=== PATIENT | male | born 1960 | race Caucasian/White ===

== ENCOUNTER 2016-08-23 15:24 | Emergency (ER) | payer MEDICARE, MEDICAID ==
[2016-08-23] MEDS ORDERED: Lidocaine 1% 30 ML SDV INJECT ONE (16:15)
[2016-08-23 18:35] VITALS: BP 90/61
--- NOTE | 2016-08-26 08:12 | ER ---
Date of Service: 08/23/2016 SUBJECTIVE: Liborio presents to the emergency room with complaints of facial lacerations and contusions status post fall. The staff states that he misstepped and fell forward onto his face. He does have a history of schizoaffective disorder and does suffer from frequent falls. Is unknown if he did have loss of consciousness following the event. The patient's only complaint was that of facial pain after the fall. PAST MEDICAL HISTORY: 1. Schizoaffective disorder. 2. History of pneumonia. 3. Generalized anxiety disorder. 4. Obsessive compulsive disorder. 5. Hyperlipidemia. 6. Dysphagia. 7. Antisocial personality disorder. 8. Frequent health care and aspiration associated pneumonia. MEDICATIONS: 1. Clozapine. 2. Coenzyme Q10. 3. Bactrim DS. 4. Simethicone. 5. Propranolol. 6. MiraLAX. 7. Multivitamin and minerals. 8. Remeron. 9. [place] citrate. 10.Glycopyrrolate. 11.Fenofibrate. 12.Lexapro. 13.Senna Plus. 14.Valium. 15.Klonopin. 16.Dulcolax. 17.Ascorbic acid. ALLERGIES: To penicillin. REVIEW OF SYSTEMS: Unobtainable as patient is unwilling to answer questions. PHYSICAL EXAMINATION: General: This is a 56-year-old male patient who is in no acute distress. Vital signs: Please see nurse's notes. Skin: Warm, pink, and dry. HEENT: Head is normocephalic. He does have numerous abrasions to his forehead, to his nose, and to his chin. He also does have a stellate laceration to the bridge of his nose and also a well approximated 1 cm laceration to his forehead and a 1 cm total stellate laceration to the bridge of his nose. No obvious gross bony deformity underlying either of the lacerations. He does have numerous abrasions noted to his forehead and face. Ears, evaluation of the patient's left tympanic membrane reveals a large amount of cerumen. No hemotympanum noted. Right ear is within normal limits. Mouth, oral mucosa is moist. No evidence of any malocclusion or oral trauma noted. Evaluation of the nasal mucosa does not reveal any acute trauma. Neck and spine: No midline C-spine, thoracic, or lumbar discomfort noted on palpation. No neck trauma noted. Chest: No chest wall trauma noted. Lungs: Clear to auscultation. Heart: Regular rate and rhythm. Abdomen: Soft, nontender. There is no hepatosplenomegaly noted. There is no mass noted. Neurologic: He is alert, oriented, and answers all questions appropriately. His speech is fluent. DIAGNOSTIC DATA: CT scan of the patient's brain and facial bones were obtained. There was no evidence of any obvious fracture to the nasal bones. No intracranial trauma noted. EMERGENCY ROOM COURSE: The lacerations on the patient's face were cleansed with chlorhexidine and normal saline. A total of 3 sutures was placed in the laceration to the bridge of his nose and a total of 3 sutures was placed in the laceration to his forehead utilizing 6-0 nylon suture material. 1% lidocaine was used to anesthetize the lacerations prior to suturing and sterile technique was used. ASSESSMENT: 1 cm to bridge of nose and 1 cm laceration to forehead status post fall. PLAN: The patient will be discharged. Return if there is any redness, swelling, or discharge. Also, sutures out in 10 days. This can be done at the [facility]. Also, return if he develops any increased confusion, decreased level of consciousness, or other worrisome signs or symptoms. All questions were answered. MWK: 08/23/2016 18:03:31 MODL: 08/23/2016 23:09:29 /[id number]
== END 2016-08-23 17:05 ==
LOC: VM.ED 15:24
DX: S01.21XA Laceration without foreign body of nose, initial encounter (principal); S01.81XA Laceration without foreign body of other part of head, initial encounter; F41.9 Anxiety disorder, unspecified; Z88.0 Allergy status to penicillin; Z87.01 Personal history of pneumonia (recurrent); W19.XXXA Unspecified fall, initial encounter
CPT/HCPCS: 12001; 12011; 70450; 70486; 99282-GF-25; 99284

== ENCOUNTER 2022-06-23 07:45 | Emergency (ER) | payer MEDICARE, MEDICAID ==
[2022-06-23 07:50] VITALS: BP 133/84; PULSE 101
[2022-06-23] MEDS: Lidocaine 1% 30 ML SDV INJECT ONE (09:00)
== END 2022-06-23 09:32 ==
LOC: VM.ED 07:45 → MERGE 07:45 → VM.ED 09:32
DX: S61.216A Laceration without foreign body of right little finger without damage to nail, initial encounter (principal); E03.9 Hypothyroidism, unspecified; Z88.0 Allergy status to penicillin; Z79.899 Other long term (current) drug therapy
CPT/HCPCS: 12001; 73130-RT; 99283; 99284-25; J3490

== ENCOUNTER 2022-09-15 02:52 | Inpatient (IN) | payer MEDICARE, MEDICAID ==
[2022-09-15 03:20] LABS: BASOPHILS ABSOLUTE AUTO 0.1 x10^3/uL (0.0-0.2); BASOPHILS PERCENT AUTO 0.3 % (0.2-1.2); EOSINOPHILS ABSOLUTE AUTO 0.5 x10^3/uL (0.0-0.5); EOSINOPHILS PERCENT AUTO 3.3 % (0.0-4.0); HEMATOCRIT 47.6 % (40.0-52.0); HEMOGLOBIN 15.7 g/dL (14.0-18.0); IMMATURE GRAN ABSOLUTE AUTO 0.04 x10^3/uL (0.00-0.07); LYMPHOCYTES ABSOLUTE AUTO 2.4 x10^3/uL (1.0-4.8); LYMPHOCYTES PERCENT AUTO 15.3 % (25.0-50.0); MEAN CORPUSCULAR HEMOGLOBIN 31.5 pg (26.0-32.0); MEAN CORPUSCULAR VOLUME 95.6 fL (78.0-93.0); MONOCYTES ABSOLUTE AUTO 0.6 x10^3/uL (0.0-0.8); NEUTROPHILS ABSOLUTE AUTO 12.2 x10^3/uL (1.8-7.7); NEUTROPHILS PERCENT AUTO 76.8 % (50.0-80.0); PLATELET COUNT,PLT 331 x10^3/uL (130-400); RED BLOOD CELL COUNT 4.98 x10^6/uL (4.5-6.0); WHITE BLOOD CELL COUNT,WBC 15.8 x10^3/uL (4.0-10.0)
[2022-09-15 03:38] LABS: A/G RATIO 0.83; ALANINE AMINOTRANSFERASE,ALT 21 U/L (16-63); ALBUMIN 3.4 g/dL (3.4-5.0); ALKALINE PHOSPHATASE 116 U/L (46-116); ASPARTATE AMNIOTRANSFERASE,AST 18 U/L (15-37); BILIRUBIN TOTAL 0.4 mg/dL (0.2-1.0); BLOOD UREA NITROGEN,BUN 15 mg/dL (7-18); C-REACTIVE PROTEIN 1.5 mg/dL (<=0.9); CALCIUM 9.5 mg/dL (8.5-10.1); CARBON DIOXIDE,CO2 26 mmol/L (21-32); CHLORIDE,CL 102 mmol/L (98-107); CREATININE 1.3 mg/dL (0.70-1.30); GLUCOSE RANDOM 164 mg/dL (70-99); POTASSIUM,K 4.6 mmol/L (3.5-5.1); PROTEIN TOTAL,TP 7.5 g/dL (6.4-8.2); SODIUM,NA 137 mmol/L (136-145)
[2022-09-15 03:39] LABS: ANION GAP 13.6 mmol/L (5-15); ESTIMATED GFR 62 mL/min (>=60)
[2022-09-15] MEDS ORDERED: Sodium Chloride 0.9% 1,000 ML IV ONE (03:49)
[2022-09-15] MEDS ORDERED: Iopamidol 612 MG/ML 100 ML Bottle IVPUSH ONE (03:51)
[2022-09-15] MEDS ORDERED: cefTRIAXone 2 GM Vial IVPUSH ONE (05:36)
[2022-09-15] MEDS: Sodium Chloride 0.9% 1,000 ML IV SCH ×2 (06:34→16:19)
[2022-09-15] MEDS ORDERED: Bisacodyl 5 MG Tab PO PRN (10:25)
[2022-09-15] MEDS ORDERED: Flumazenil 0.1 MG/ML 5 ML MDV IVPUSH PRN (10:40)
[2022-09-15] MEDS ORDERED: LORazepam 2 MG/ML SDV IVPUSH SCH (10:45)
[2022-09-15] MEDS ORDERED: LORazepam 1 MG Tab PO SCH (11:30)
[2022-09-15] MEDS ORDERED: Metoclopramide 10 MG Tab PO PRN (12:05)
[2022-09-15] MEDS: QUEtiapine 100 MG Tab PO SCH ×2 (12:16→20:13)
[2022-09-15] MEDS ORDERED: LEVOCARNITINE 500 MG PO SCH ×2 (13:00)
[2022-09-15] MEDS: Lactulose Soln 10 GM/15 ML 30 ML UD Cup PO SCH (20:13)
[2022-09-15] MEDS: Polyethylene Glycol 3350 Powder 17 GM Packet PO SCH (20:13)
[2022-09-15] MEDS: Propranolol 20 MG Tab PO SCH (20:13)
[2022-09-15] MEDS: Mirtazapine 30 MG Tab PO SCH (20:13)
[2022-09-15] MEDS: OLANZapine 10 MG Tab PO SCH (20:14)
[2022-09-15] MEDS: Diazepam 5 MG Tab PO SCH (20:14)
[2022-09-15] MEDS ORDERED: Non-Formulary Medication 1 Each (Lorazepam 2 MG Tablet) PO SCH (21:00)
[2022-09-15] MEDS ORDERED: Lactulose Soln 10 GM/15 ML 15 ML UD Cup PO SCH (21:00)
[2022-09-16] MEDS: Sodium Chloride 0.9% 1,000 ML IV SCH (00:15)
[2022-09-16] MEDS ORDERED: LORazepam 1 MG Tab PO SCH (06:00)
[2022-09-16] MEDS: Levothyroxine 50 MCG Tab PO SCH (06:08)
[2022-09-16 06:55] LABS: BASOPHILS PERCENT AUTO 0.3 % (0.2-1.2); EOSINOPHILS ABSOLUTE AUTO 0.5 x10^3/uL (0.0-0.5); EOSINOPHILS PERCENT AUTO 4.4 % (0.0-4.0); HEMATOCRIT 39.3 % (40.0-52.0); HEMOGLOBIN 12.9 g/dL (14.0-18.0); IMMATURE GRAN ABSOLUTE AUTO 0.01 x10^3/uL (0.00-0.07); LYMPHOCYTES ABSOLUTE AUTO 1.8 x10^3/uL (1.0-4.8); LYMPHOCYTES PERCENT AUTO 15.5 % (25.0-50.0); MEAN CORPUSCULAR HEMOGLOBIN 31.9 pg (26.0-32.0); MEAN CORPUSCULAR HGB CONC 32.8 g/dL (32.0-36.0); MONOCYTES ABSOLUTE AUTO 0.6 x10^3/uL (0.0-0.8); MONOCYTES PERCENT AUTO 5.2 % (2.0-11.0); NEUTROPHILS ABSOLUTE AUTO 8.4 x10^3/uL (1.8-7.7); NEUTROPHILS PERCENT AUTO 74.5 % (50.0-80.0); PLATELET COUNT,PLT 233 x10^3/uL (130-400); RED BLOOD CELL COUNT 4.05 x10^6/uL (4.5-6.0); WHITE BLOOD CELL COUNT,WBC 11.3 x10^3/uL (4.0-10.0)
[2022-09-16 07:25] LABS: CALCIUM 8.4 mg/dL (8.5-10.1); CREATININE 0.9 mg/dL (0.70-1.30); EST CRCL DRUG DOSING (CG) 81.28 mL/min; POTASSIUM,K 3.7 mmol/L (3.5-5.1); TSH ULTRASENSITIVE 1.89 uIU/mL (0.358-3.74)
[2022-09-16 07:30] LABS: ANION GAP 12.7 mmol/L (5-15)
[2022-09-16] MEDS ORDERED: Flumazenil 0.1 MG/ML 5 ML MDV IVPUSH PRN (08:38)
[2022-09-16] MEDS ORDERED: Mirtazapine 30 MG Tab PO SCH (09:00)
[2022-09-16] MEDS: Metoclopramide 10 MG/2 ML SDV IVPUSH SCH ×3 (09:02→21:38)
[2022-09-16] MEDS: LORazepam 2 MG/ML SDV IVPUSH SCH ×3 (09:03→21:37)
[2022-09-16] MEDS: cefTRIAXone 1 GM Vial IVPUSH SCH (09:08)
[2022-09-16] MEDS: Enoxaparin 40 MG/0.4 ML Syringe SUBCUT SCH (09:15)
[2022-09-16 10:01] LABS: APPEARANCE,URINE CLEAR (CLEAR); BILIRUBIN,URINE NEGATIVE (NEGATIVE); COLOR,URINE YELLOW (YELLOW); GLUCOSE,URINE NEGATIVE (NEGATIVE); KETONES,URINE 40 mg/dL (NEGATIVE); LEUKOCYTE ESTERASE,URINE NEGATIVE (NEGATIVE); NITRITE,URINE NEGATIVE (NEGATIVE); OCCULT BLOOD,URINE NEGATIVE (NEGATIVE); PROTEIN,URINE NEGATIVE (NEGATIVE); UROBILINOGEN,URINE 0.2 EU/dL (0.2)
[2022-09-16] MEDS: Magnesium Oxide 400 MG Tab PO SCH (10:37)
[2022-09-16] MEDS: QUEtiapine 100 MG Tab PO SCH ×3 (10:37→21:41)
[2022-09-16] MEDS: OLANZapine 10 MG Tab PO SCH ×2 (10:37→21:57)
[2022-09-16] MEDS: Lactulose Soln 10 GM/15 ML 30 ML UD Cup PO SCH ×2 (10:37→21:50)
[2022-09-16] MEDS: Propranolol 20 MG Tab PO SCH ×2 (10:37→21:57)
[2022-09-16] MEDS: Polyethylene Glycol 3350 Powder 17 GM Packet PO SCH ×2 (10:37→21:57)
[2022-09-16] MEDS: LORazepam 1 MG Tab PO SCH ×3 (13:17→18:30)
[2022-09-16] MEDS: Diazepam 5 MG Tab PO SCH (21:40)
[2022-09-16] MEDS: Mirtazapine 30 MG Tab PO SCH (21:57)
[2022-09-17] MEDS: Metoclopramide 10 MG/2 ML SDV IVPUSH SCH ×2 (03:26→08:20)
[2022-09-17] MEDS: LORazepam 1 MG Tab PO SCH ×2 (06:33→11:31)
[2022-09-17] MEDS: Levothyroxine 50 MCG Tab PO SCH (06:33)
[2022-09-17 06:51] LABS: BASOPHILS PERCENT AUTO 0.6 % (0.2-1.2); EOSINOPHILS ABSOLUTE AUTO 0.4 x10^3/uL (0.0-0.5); EOSINOPHILS PERCENT AUTO 5.8 % (0.0-4.0); HEMATOCRIT 36.2 % (40.0-52.0); IMMATURE GRAN ABSOLUTE AUTO 0.03 x10^3/uL (0.00-0.07); LYMPHOCYTES ABSOLUTE AUTO 1.6 x10^3/uL (1.0-4.8); LYMPHOCYTES PERCENT AUTO 22.7 % (25.0-50.0); MEAN CORPUSCULAR HEMOGLOBIN 31.9 pg (26.0-32.0); MEAN CORPUSCULAR HGB CONC 33.1 g/dL (32.0-36.0); MEAN CORPUSCULAR VOLUME 96.3 fL (78.0-93.0); MONOCYTES ABSOLUTE AUTO 0.5 x10^3/uL (0.0-0.8); MONOCYTES PERCENT AUTO 7.4 % (2.0-11.0); NEUTROPHILS ABSOLUTE AUTO 4.5 x10^3/uL (1.8-7.7); NEUTROPHILS PERCENT AUTO 63.1 % (50.0-80.0); PLATELET COUNT,PLT 211 x10^3/uL (130-400); RED BLOOD CELL COUNT 3.76 x10^6/uL (4.5-6.0); WHITE BLOOD CELL COUNT,WBC 7.1 x10^3/uL (4.0-10.0)
[2022-09-17 07:17] LABS: A/G RATIO 0.74; ALBUMIN 2.6 g/dL (3.4-5.0); BILIRUBIN TOTAL 0.3 mg/dL (0.2-1.0); CALCIUM 8.4 mg/dL (8.5-10.1); CREATININE 0.9 mg/dL (0.70-1.30); EST CRCL DRUG DOSING (CG) 81.28 mL/min; POTASSIUM,K 3.7 mmol/L (3.5-5.1); PROTEIN TOTAL,TP 6.1 g/dL (6.4-8.2)
[2022-09-17 07:18] LABS: ANION GAP 11.7 mmol/L (5-15)
[2022-09-17] MEDS: OLANZapine 10 MG Tab PO SCH (08:15)
[2022-09-17] MEDS: Propranolol 20 MG Tab PO SCH (08:15)
[2022-09-17] MEDS: QUEtiapine 100 MG Tab PO SCH ×2 (08:15→13:24)
[2022-09-17] MEDS: Magnesium Oxide 400 MG Tab PO SCH (08:16)
[2022-09-17] MEDS: LORazepam 2 MG/ML SDV IVPUSH SCH (08:17)
[2022-09-17] MEDS: cefTRIAXone 1 GM Vial IVPUSH SCH (08:29)
[2022-09-17] MEDS: Lactulose Soln 10 GM/15 ML 30 ML UD Cup PO SCH (08:32)
[2022-09-17] MEDS: Polyethylene Glycol 3350 Powder 17 GM Packet PO SCH (08:32)
[2022-09-17] MEDS: Enoxaparin 40 MG/0.4 ML Syringe SUBCUT SCH (08:33)
[2022-09-17] MEDS: LEVOCARNITINE PO SCH ×2 (08:34→13:25)
[2022-09-17 09:52] VITALS: BP 114/70
[2022-09-17 13:16] VITALS: PULSE 82
== END 2022-09-17 13:55 | DRG 389 ==
LOC: VM.ED 02:52 → UNDOADMIN 05:30 → VM.MS 05:30 → UNDODISIN 09-17 13:55
PROVIDERS: ADMIT Physician Assistant; ATTEND Internal Medicine
PROC: 0DH67UZ Insertion of Feeding Device into Stomach, Via Natural or Artificial Opening (ICD-10-PCS; principal; 2022-09-15)
DX: K56.609 Unspecified intestinal obstruction, unspecified as to partial versus complete obstruction (principal); F84.0 Autistic disorder; G40.909 Epilepsy, unspecified, not intractable, without status epilepticus; E03.9 Hypothyroidism, unspecified; K59.09 Other constipation; E78.5 Hyperlipidemia, unspecified; K76.89 Other specified diseases of liver; Z66 Do not resuscitate; E78.00 Pure hypercholesterolemia, unspecified; F25.0 Schizoaffective disorder, bipolar type; F71 Moderate intellectual disabilities; Z79.899 Other long term (current) drug therapy; R13.10 Dysphagia, unspecified; Z88.0 Allergy status to penicillin; Z79.890 Hormone replacement therapy; Z86.16 Personal history of COVID-19
CPT/HCPCS: 36415; 71045; 74018; 74177; 80048; 80053; 81003; 82140; 83605; 84145; 84443; 85025; 86140; 87040; 87077; 87186; 96361; 96374; 99284; 99285-25; A9270-GY; J0696; J1650; J2060; J2765; J7030; Q9967

== ENCOUNTER 2022-10-27 20:18 | Inpatient (IN) | payer MEDICARE, MEDICAID ==
[2022-10-27 20:37] LABS: BASOPHILS PERCENT AUTO 0.4 % (0.2-1.2); EOSINOPHILS ABSOLUTE AUTO 0.8 x10^3/uL (0.0-0.5); EOSINOPHILS PERCENT AUTO 7.2 % (0.0-4.0); HEMATOCRIT 49.7 % (40.0-52.0); HEMOGLOBIN 16.3 g/dL (14.0-18.0); IMMATURE GRAN ABSOLUTE AUTO 0.02 x10^3/uL (0.00-0.07); LYMPHOCYTES ABSOLUTE AUTO 3.3 x10^3/uL (1.0-4.8); LYMPHOCYTES PERCENT AUTO 29.3 % (25.0-50.0); MEAN CORPUSCULAR HEMOGLOBIN 32.1 pg (26.0-32.0); MEAN CORPUSCULAR HGB CONC 32.8 g/dL (32.0-36.0); MEAN CORPUSCULAR VOLUME 97.8 fL (78.0-93.0); MONOCYTES ABSOLUTE AUTO 0.5 x10^3/uL (0.0-0.8); MONOCYTES PERCENT AUTO 4.8 % (2.0-11.0); NEUTROPHILS ABSOLUTE AUTO 6.5 x10^3/uL (1.8-7.7); NEUTROPHILS PERCENT AUTO 58.1 % (50.0-80.0); PLATELET COUNT,PLT 300 x10^3/uL (130-400); RED BLOOD CELL COUNT 5.08 x10^6/uL (4.5-6.0); WHITE BLOOD CELL COUNT,WBC 11.2 x10^3/uL (4.0-10.0)
[2022-10-27 20:55] LABS: ALANINE AMINOTRANSFERASE,ALT 25 U/L (16-63); ALBUMIN 3.5 g/dL (3.4-5.0); ALKALINE PHOSPHATASE 126 U/L (46-116); ASPARTATE AMNIOTRANSFERASE,AST 19 U/L (15-37); BILIRUBIN TOTAL 0.4 mg/dL (0.2-1.0); BLOOD UREA NITROGEN,BUN 8 mg/dL (7-18); C-REACTIVE PROTEIN 1.2 mg/dL (<=0.9); CALCIUM 9.4 mg/dL (8.5-10.1); CARBON DIOXIDE,CO2 27 mmol/L (21-32); CHLORIDE,CL 105 mmol/L (98-107); CREATININE 1.3 mg/dL (0.70-1.30); GLUCOSE RANDOM 193 mg/dL (70-99); LIPASE 123 U/L (73-393); POTASSIUM,K 5.2 mmol/L (3.5-5.1); PROTEIN TOTAL,TP 7.9 g/dL (6.4-8.2); SODIUM,NA 143 mmol/L (136-145)
[2022-10-27 20:58] LABS: ANION GAP 16.2 mmol/L (5-15); ESTIMATED GFR 62 mL/min (>=60)
[2022-10-27] MEDS ORDERED: Iopamidol 612 MG/ML 100 ML Bottle IVPUSH ONE (21:18)
[2022-10-27] MEDS ORDERED: Naloxone 0.4 MG/ML SDV IVPUSH PRN (22:01)
[2022-10-27] MEDS ORDERED: HYDROmorphone 0.5 MG/0.5 ML Syringe IVPUSH ONE (22:01)
[2022-10-27] MEDS: Sodium Chloride 0.9% 1,000 ML IV SCH (22:15)
[2022-10-27] MEDS ORDERED: Ondansetron 4 MG/2 ML SDV IVPUSH PRN (22:41)
[2022-10-28] MEDS: Metoclopramide 10 MG/2 ML SDV IVPUSH SCH ×4 (00:45→16:46)
[2022-10-28] MEDS: Sodium Chloride 0.9% 1,000 ML IV SCH ×2 (04:37→21:37)
[2022-10-28] MEDS: Mirtazapine 30 MG Tab PO SCH ×2 (05:25→21:26)
[2022-10-28] MEDS: QUEtiapine 100 MG Tab PO SCH ×4 (05:26→21:26)
[2022-10-28 06:49] LABS: BASOPHILS PERCENT AUTO 0.4 % (0.2-1.2); EOSINOPHILS ABSOLUTE AUTO 0.8 x10^3/uL (0.0-0.5); EOSINOPHILS PERCENT AUTO 8.8 % (0.0-4.0); HEMOGLOBIN 13.1 g/dL (14.0-18.0); LYMPHOCYTES ABSOLUTE AUTO 2.5 x10^3/uL (1.0-4.8); LYMPHOCYTES PERCENT AUTO 26.4 % (25.0-50.0); MEAN CORPUSCULAR HEMOGLOBIN 32.3 pg (26.0-32.0); MEAN CORPUSCULAR HGB CONC 33.6 g/dL (32.0-36.0); MEAN CORPUSCULAR VOLUME 96.1 fL (78.0-93.0); MONOCYTES ABSOLUTE AUTO 0.6 x10^3/uL (0.0-0.8); MONOCYTES PERCENT AUTO 6.9 % (2.0-11.0); NEUTROPHILS ABSOLUTE AUTO 5.4 x10^3/uL (1.8-7.7); NEUTROPHILS PERCENT AUTO 57.5 % (50.0-80.0); PLATELET COUNT,PLT 236 x10^3/uL (130-400); RED BLOOD CELL COUNT 4.06 x10^6/uL (4.5-6.0); WHITE BLOOD CELL COUNT,WBC 9.3 x10^3/uL (4.0-10.0)
[2022-10-28 07:20] LABS: A/G RATIO 0.81; ALBUMIN 2.6 g/dL (3.4-5.0); BILIRUBIN TOTAL 0.4 mg/dL (0.2-1.0); EST CRCL DRUG DOSING (CG) 73.15 mL/min; POTASSIUM,K 4.2 mmol/L (3.5-5.1); PROTEIN TOTAL,TP 5.8 g/dL (6.4-8.2)
[2022-10-28 07:21] LABS: ANION GAP 11.2 mmol/L (5-15)
[2022-10-28] MEDS ORDERED: Lidocaine 2% HCl 11 ML Jelly Filled Syringe TOP PRN (08:44)
[2022-10-28] MEDS: LORazepam 1 MG Tab PO SCH ×4 (09:02→21:25)
[2022-10-28] MEDS: Polyethylene Glycol 3350 Powder 17 GM Packet PO SCH ×2 (09:02→21:26)
[2022-10-28] MEDS: Lactulose Soln 10 GM/15 ML 30 ML UD Cup PO SCH ×2 (09:02→21:25)
[2022-10-28] MEDS: Levothyroxine 50 MCG Tab PO SCH (09:04)
[2022-10-28] MEDS: Propranolol 20 MG Tab PO SCH ×2 (09:05→21:25)
[2022-10-28] MEDS: OLANZapine 10 MG Tab PO SCH ×2 (09:05→21:26)
[2022-10-28] MEDS: Enoxaparin 40 MG/0.4 ML Syringe SUBCUT SCH (13:21)
[2022-10-29] MEDS: Metoclopramide 10 MG/2 ML SDV IVPUSH SCH ×5 (00:08→23:31)
[2022-10-29] MEDS: Sodium Chloride 0.9% 1,000 ML IV SCH ×2 (05:53→20:20)
[2022-10-29] MEDS: LORazepam 1 MG Tab PO SCH ×4 (05:56→21:44)
[2022-10-29] MEDS: Levothyroxine 50 MCG Tab PO SCH (06:01)
[2022-10-29 06:55] LABS: HEMATOCRIT 37.7 % (40.0-52.0); HEMOGLOBIN 12.7 g/dL (14.0-18.0); MEAN CORPUSCULAR HEMOGLOBIN 32.2 pg (26.0-32.0); MEAN CORPUSCULAR HGB CONC 33.7 g/dL (32.0-36.0); MEAN CORPUSCULAR VOLUME 95.7 fL (78.0-93.0); RED BLOOD CELL COUNT 3.94 x10^6/uL (4.5-6.0); WHITE BLOOD CELL COUNT,WBC 9.5 x10^3/uL (4.0-10.0)
[2022-10-29 07:17] LABS: A/G RATIO 0.84; ALBUMIN 2.7 g/dL (3.4-5.0); BILIRUBIN TOTAL 0.6 mg/dL (0.2-1.0); CALCIUM 8.2 mg/dL (8.5-10.1); CREATININE 0.9 mg/dL (0.70-1.30); EST CRCL DRUG DOSING (CG) 81.28 mL/min; POTASSIUM,K 3.9 mmol/L (3.5-5.1); PROTEIN TOTAL,TP 5.9 g/dL (6.4-8.2)
[2022-10-29 07:18] LABS: ANION GAP 12.9 mmol/L (5-15)
[2022-10-29] MEDS: Polyethylene Glycol 3350 Powder 17 GM Packet PO SCH ×2 (08:45→21:43)
[2022-10-29] MEDS: QUEtiapine 100 MG Tab PO SCH ×3 (08:45→21:43)
[2022-10-29] MEDS: Propranolol 20 MG Tab PO SCH ×2 (08:45→21:44)
[2022-10-29] MEDS: Lactulose Soln 10 GM/15 ML 30 ML UD Cup PO SCH ×2 (08:46→21:44)
[2022-10-29] MEDS: Enoxaparin 40 MG/0.4 ML Syringe SUBCUT SCH (08:47)
[2022-10-29] MEDS: OLANZapine 10 MG Tab PO SCH ×2 (08:47→21:44)
[2022-10-29] MEDS: Mirtazapine 30 MG Tab PO SCH (21:44)
[2022-10-30] MEDS: Levothyroxine 50 MCG Tab PO SCH (06:43)
[2022-10-30] MEDS: LORazepam 1 MG Tab PO SCH ×2 (06:43→11:11)
[2022-10-30] MEDS: Metoclopramide 10 MG/2 ML SDV IVPUSH SCH ×2 (07:07→11:11)
[2022-10-30] MEDS: OLANZapine 10 MG Tab PO SCH (08:51)
[2022-10-30] MEDS: Polyethylene Glycol 3350 Powder 17 GM Packet PO SCH (08:53)
[2022-10-30] MEDS: Lactulose Soln 10 GM/15 ML 30 ML UD Cup PO SCH (08:53)
[2022-10-30] MEDS: Enoxaparin 40 MG/0.4 ML Syringe SUBCUT SCH (08:54)
[2022-10-30] MEDS: Propranolol 20 MG Tab PO SCH (08:55)
[2022-10-30] MEDS: QUEtiapine 100 MG Tab PO SCH ×2 (09:04→12:43)
[2022-10-30 11:22] VITALS: BP 135/75; PULSE 98
== END 2022-10-30 13:30 | DRG 389 ==
LOC: VM.ED 20:18 → VM.MS 22:11
PROVIDERS: ADMIT Nurse Practitioner Family; ATTEND Internal Medicine
PROC: 0D9670Z Drainage of Stomach with Drainage Device, Via Natural or Artificial Opening (ICD-10-PCS; principal; 2022-10-27)
DX: K56.609 Unspecified intestinal obstruction, unspecified as to partial versus complete obstruction (principal); F84.0 Autistic disorder; K59.09 Other constipation; E78.00 Pure hypercholesterolemia, unspecified; Z66 Do not resuscitate; F20.9 Schizophrenia, unspecified; D64.9 Anemia, unspecified; Z86.16 Personal history of COVID-19; E03.9 Hypothyroidism, unspecified; F41.1 Generalized anxiety disorder; F60.2 Antisocial personality disorder; F42.9 Obsessive-compulsive disorder, unspecified; F25.0 Schizoaffective disorder, bipolar type; K59.9 Functional intestinal disorder, unspecified; E78.5 Hyperlipidemia, unspecified; G40.909 Epilepsy, unspecified, not intractable, without status epilepticus; Z88.0 Allergy status to penicillin; Z79.899 Other long term (current) drug therapy
CPT/HCPCS: 36415; 43752; 71045; 74019; 74177; 80053; 83605; 83690; 84145; 85025; 85027; 86140; 96374; 99284; 99285-25; A9270-GY; J1170; J1650; J2765; J7030; Q9967

== ENCOUNTER 2022-11-02 20:22 | Inpatient (IN) | payer MEDICARE, MEDICAID ==
[2022-11-02] MEDS ORDERED: cefTRIAXone 1 GM Vial IVPUSH ONE (20:30)
[2022-11-02] MEDS ORDERED: Sodium Chloride 0.9% 1,000 ML IV ONE (20:30)
[2022-11-02 20:40] LABS: BASOPHILS ABSOLUTE AUTO 0.1 x10^3/uL (0.0-0.2); BASOPHILS PERCENT AUTO 0.3 % (0.2-1.2); EOSINOPHILS ABSOLUTE AUTO 0.5 x10^3/uL (0.0-0.5); EOSINOPHILS PERCENT AUTO 2.7 % (0.0-4.0); HEMATOCRIT 48.5 % (40.0-52.0); HEMOGLOBIN 15.6 g/dL (14.0-18.0); IMMATURE GRAN ABSOLUTE AUTO 0.03 x10^3/uL (0.00-0.07); LYMPHOCYTES ABSOLUTE AUTO 2.5 x10^3/uL (1.0-4.8); LYMPHOCYTES PERCENT AUTO 13.2 % (25.0-50.0); MEAN CORPUSCULAR HEMOGLOBIN 31.9 pg (26.0-32.0); MEAN CORPUSCULAR HGB CONC 32.2 g/dL (32.0-36.0); MEAN CORPUSCULAR VOLUME 99.2 fL (78.0-93.0); MONOCYTES ABSOLUTE AUTO 0.8 x10^3/uL (0.0-0.8); MONOCYTES PERCENT AUTO 4.3 % (2.0-11.0); NEUTROPHILS ABSOLUTE AUTO 14.7 x10^3/uL (1.8-7.7); NEUTROPHILS PERCENT AUTO 79.3 % (50.0-80.0); PLATELET COUNT,PLT 342 x10^3/uL (130-400); RED BLOOD CELL COUNT 4.89 x10^6/uL (4.5-6.0)
[2022-11-02 20:49] LABS: WHITE BLOOD CELL COUNT,WBC 18.6 x10^3/uL (4.0-10.0)
[2022-11-02 21:04] LABS: A/G RATIO 0.76; ALANINE AMINOTRANSFERASE,ALT 28 U/L (16-63); ALBUMIN 3.4 g/dL (3.4-5.0); ALKALINE PHOSPHATASE 124 U/L (46-116); ASPARTATE AMNIOTRANSFERASE,AST 16 U/L (15-37); BILIRUBIN TOTAL 0.3 mg/dL (0.2-1.0); BLOOD UREA NITROGEN,BUN 6 mg/dL (7-18); C-REACTIVE PROTEIN 2.42 mg/dL (<=0.30); CARBON DIOXIDE,CO2 27 mmol/L (21-32); CHLORIDE,CL 106 mmol/L (98-107); CREATININE 1.2 mg/dL (0.70-1.30); GLUCOSE RANDOM 154 mg/dL (70-99); POTASSIUM,K 4.4 mmol/L (3.5-5.1); PROTEIN TOTAL,TP 7.9 g/dL (6.4-8.2); SODIUM,NA 144 mmol/L (136-145)
[2022-11-02 21:06] LABS: ANION GAP 15.4 mmol/L (5-15); ESTIMATED GFR 68 mL/min (>=60)
[2022-11-02] MEDS ORDERED: Furosemide 20 MG/2 ML VIAL IV ONE (21:46)
[2022-11-02] MEDS ORDERED: Naloxone 0.4 MG/ML SDV IVPUSH PRN (21:54)
[2022-11-02] MEDS ORDERED: Morphine 4 MG/ML Syringe IVPUSH PRN (21:54)
[2022-11-02] MEDS ORDERED: LORazepam 2 MG/ML SDV IVPUSH PRN (22:06)
[2022-11-02] MEDS ORDERED: Flumazenil 0.1 MG/ML 5 ML MDV IVPUSH PRN (22:06)
[2022-11-02] MEDS: Albuterol/Ipratropium 3.0-0.5 MG/3 ML Neb Soln NEB SCH (22:22)
[2022-11-02] MEDS: Pantoprazole 40 MG Vial IVPUSH SCH (22:24)
[2022-11-02] MEDS: Sodium Chloride 0.9% 1,000 ML IV SCH (22:31)
[2022-11-02] MEDS ORDERED: Diazepam 5 MG Tab PO PRN (23:59)
[2022-11-02] MEDS ORDERED: Acetaminophen 325 MG Tab PO PRN (23:59)
[2022-11-03] MEDS: Albuterol/Ipratropium 3.0-0.5 MG/3 ML Neb Soln NEB SCH ×6 (02:49→22:56)
[2022-11-03] MEDS: LORazepam 1 MG Tab PO SCH ×4 (06:08→18:38)
[2022-11-03] MEDS: Sodium Chloride 0.9% 1,000 ML IV SCH ×3 (06:10→21:41)
[2022-11-03] MEDS: Levothyroxine 50 MCG Tab PO SCH (06:15)
[2022-11-03 08:20] LABS: BASOPHILS PERCENT AUTO 0.1 % (0.2-1.2); EOSINOPHILS ABSOLUTE AUTO 0.2 x10^3/uL (0.0-0.5); EOSINOPHILS PERCENT AUTO 0.9 % (0.0-4.0); HEMATOCRIT 41.9 % (40.0-52.0); HEMOGLOBIN 13.5 g/dL (14.0-18.0); IMMATURE GRAN ABSOLUTE AUTO 0.03 x10^3/uL (0.00-0.07); LYMPHOCYTES ABSOLUTE AUTO 2.1 x10^3/uL (1.0-4.8); LYMPHOCYTES PERCENT AUTO 11.9 % (25.0-50.0); MEAN CORPUSCULAR HGB CONC 32.2 g/dL (32.0-36.0); MEAN CORPUSCULAR VOLUME 99.3 fL (78.0-93.0); MONOCYTES ABSOLUTE AUTO 0.9 x10^3/uL (0.0-0.8); MONOCYTES PERCENT AUTO 5.1 % (2.0-11.0); NEUTROPHILS ABSOLUTE AUTO 14.2 x10^3/uL (1.8-7.7); NEUTROPHILS PERCENT AUTO 81.8 % (50.0-80.0); PLATELET COUNT,PLT 275 x10^3/uL (130-400); RED BLOOD CELL COUNT 4.22 x10^6/uL (4.5-6.0)
[2022-11-03 08:21] LABS: WHITE BLOOD CELL COUNT,WBC 17.4 x10^3/uL (4.0-10.0)
[2022-11-03 08:43] LABS: BLOOD UREA NITROGEN,BUN 11 mg/dL (7-18); C-REACTIVE PROTEIN 5.84 mg/dL (<=0.30); CALCIUM 8.2 mg/dL (8.5-10.1); CARBON DIOXIDE,CO2 27 mmol/L (21-32); CHLORIDE,CL 108 mmol/L (98-107); GLUCOSE RANDOM 133 mg/dL (70-99); MAGNESIUM 2.2 mg/dL (1.8-2.4); POTASSIUM,K 4.3 mmol/L (3.5-5.1); SODIUM,NA 144 mmol/L (136-145)
[2022-11-03 08:45] LABS: ANION GAP 13.3 mmol/L (5-15); ESTIMATED GFR 85 mL/min (>=60)
[2022-11-03] MEDS ORDERED: Enoxaparin 40 MG/0.4 ML Syringe SUBCUT SCH (09:00)
[2022-11-03] MEDS: OLANZapine 10 MG Tab PO SCH ×2 (09:55→20:55)
[2022-11-03] MEDS: Propranolol 20 MG Tab PO SCH ×2 (09:55→20:55)
[2022-11-03] MEDS: cefTRIAXone 1 GM Vial IVPUSH SCH (09:55)
[2022-11-03] MEDS: Pantoprazole 40 MG Vial IVPUSH SCH ×2 (09:56→21:03)
[2022-11-03] MEDS: QUEtiapine 100 MG Tab PO SCH ×3 (09:56→20:54)
[2022-11-03] MEDS: Polyethylene Glycol 3350 Powder 17 GM Packet NGTUBE SCH (20:54)
[2022-11-03] MEDS: Mirtazapine 30 MG Tab PO SCH (20:55)
[2022-11-04] MEDS: Albuterol/Ipratropium 3.0-0.5 MG/3 ML Neb Soln NEB SCH ×6 (02:04→23:49)
[2022-11-04] MEDS: LORazepam 1 MG Tab PO SCH ×4 (05:28→18:50)
[2022-11-04] MEDS: Sodium Chloride 0.9% 1,000 ML IV SCH ×2 (05:29→13:33)
[2022-11-04] MEDS: Levothyroxine 50 MCG Tab PO SCH (06:40)
[2022-11-04 06:57] LABS: BLOOD UREA NITROGEN,BUN 8 mg/dL (7-18); CALCIUM 7.8 mg/dL (8.5-10.1); CARBON DIOXIDE,CO2 25 mmol/L (21-32); CHLORIDE,CL 109 mmol/L (98-107); CREATININE 0.8 mg/dL (0.70-1.30); GLUCOSE RANDOM 95 mg/dL (70-99); POTASSIUM,K 3.8 mmol/L (3.5-5.1); SODIUM,NA 142 mmol/L (136-145)
[2022-11-04 07:02] LABS: ANION GAP 11.8 mmol/L (5-15); ESTIMATED GFR 99 mL/min (>=60)
[2022-11-04 07:25] LABS: BASOPHILS ABSOLUTE AUTO 0.1 x10^3/uL (0.0-0.2); BASOPHILS PERCENT AUTO 0.5 % (0.2-1.2); EOSINOPHILS ABSOLUTE AUTO 0.7 x10^3/uL (0.0-0.5); HEMATOCRIT 35.3 % (40.0-52.0); HEMOGLOBIN 11.4 g/dL (14.0-18.0); IMMATURE GRAN ABSOLUTE AUTO 0.01 x10^3/uL (0.00-0.07); LYMPHOCYTES ABSOLUTE AUTO 1.4 x10^3/uL (1.0-4.8); LYMPHOCYTES PERCENT AUTO 13.5 % (25.0-50.0); MEAN CORPUSCULAR HEMOGLOBIN 31.9 pg (26.0-32.0); MEAN CORPUSCULAR HGB CONC 32.3 g/dL (32.0-36.0); MEAN CORPUSCULAR VOLUME 98.9 fL (78.0-93.0); MONOCYTES ABSOLUTE AUTO 0.5 x10^3/uL (0.0-0.8); MONOCYTES PERCENT AUTO 4.9 % (2.0-11.0); NEUTROPHILS ABSOLUTE AUTO 7.5 x10^3/uL (1.8-7.7); PLATELET COUNT,PLT 233 x10^3/uL (130-400); RED BLOOD CELL COUNT 3.57 x10^6/uL (4.5-6.0); WHITE BLOOD CELL COUNT,WBC 10.1 x10^3/uL (4.0-10.0)
[2022-11-04] MEDS: cefTRIAXone 1 GM Vial IVPUSH SCH (10:36)
[2022-11-04] MEDS: Pantoprazole 40 MG Vial IVPUSH SCH ×2 (10:36→21:01)
[2022-11-04] MEDS: Propranolol 20 MG Tab PO SCH ×2 (10:59→20:19)
[2022-11-04] MEDS: OLANZapine 10 MG Tab PO SCH ×2 (10:59→20:20)
[2022-11-04] MEDS: QUEtiapine 100 MG Tab PO SCH ×3 (10:59→20:20)
[2022-11-04] MEDS: Polyethylene Glycol 3350 Powder 17 GM Packet NGTUBE SCH ×2 (11:06→20:26)
[2022-11-04] MEDS: Metoclopramide 10 MG/2 ML SDV IVPUSH SCH ×2 (14:46→18:50)
[2022-11-04] MEDS: Mirtazapine 30 MG Tab PO SCH (20:20)
[2022-11-05] MEDS: Metoclopramide 10 MG/2 ML SDV IVPUSH SCH ×4 (01:13→18:10)
[2022-11-05] MEDS: Albuterol/Ipratropium 3.0-0.5 MG/3 ML Neb Soln NEB SCH ×6 (03:04→22:41)
[2022-11-05] MEDS: Levothyroxine 50 MCG Tab PO SCH (06:01)
[2022-11-05] MEDS: LORazepam 1 MG Tab PO SCH ×4 (06:02→18:10)
[2022-11-05 07:12] LABS: BASOPHILS PERCENT AUTO 0.4 % (0.2-1.2); EOSINOPHILS ABSOLUTE AUTO 0.5 x10^3/uL (0.0-0.5); EOSINOPHILS PERCENT AUTO 7.1 % (0.0-4.0); HEMATOCRIT 34.9 % (40.0-52.0); HEMOGLOBIN 11.3 g/dL (14.0-18.0); IMMATURE GRAN ABSOLUTE AUTO 0.01 x10^3/uL (0.00-0.07); LYMPHOCYTES ABSOLUTE AUTO 1.4 x10^3/uL (1.0-4.8); LYMPHOCYTES PERCENT AUTO 20.9 % (25.0-50.0); MEAN CORPUSCULAR HEMOGLOBIN 32.1 pg (26.0-32.0); MEAN CORPUSCULAR HGB CONC 32.4 g/dL (32.0-36.0); MEAN CORPUSCULAR VOLUME 99.1 fL (78.0-93.0); MONOCYTES ABSOLUTE AUTO 0.5 x10^3/uL (0.0-0.8); MONOCYTES PERCENT AUTO 6.8 % (2.0-11.0); NEUTROPHILS ABSOLUTE AUTO 4.4 x10^3/uL (1.8-7.7); NEUTROPHILS PERCENT AUTO 64.7 % (50.0-80.0); PLATELET COUNT,PLT 209 x10^3/uL (130-400); RED BLOOD CELL COUNT 3.52 x10^6/uL (4.5-6.0); WHITE BLOOD CELL COUNT,WBC 6.8 x10^3/uL (4.0-10.0)
[2022-11-05 07:39] LABS: A/G RATIO 0.72; ALBUMIN 2.3 g/dL (3.4-5.0); BILIRUBIN TOTAL 0.3 mg/dL (0.2-1.0); CALCIUM 7.9 mg/dL (8.5-10.1); CREATININE 0.8 mg/dL (0.70-1.30); EST CRCL DRUG DOSING (CG) 91.44 mL/min; POTASSIUM,K 3.7 mmol/L (3.5-5.1); PROTEIN TOTAL,TP 5.5 g/dL (6.4-8.2)
[2022-11-05 07:50] LABS: ANION GAP 12.7 mmol/L (5-15)
[2022-11-05] MEDS: QUEtiapine 100 MG Tab PO SCH ×3 (10:13→20:59)
[2022-11-05] MEDS: cefTRIAXone 1 GM Vial IVPUSH SCH (10:13)
[2022-11-05] MEDS: OLANZapine 10 MG Tab PO SCH ×2 (10:13→21:00)
[2022-11-05] MEDS: Polyethylene Glycol 3350 Powder 17 GM Packet NGTUBE SCH ×2 (10:13→20:59)
[2022-11-05] MEDS: Propranolol 20 MG Tab PO SCH ×2 (10:13→20:59)
[2022-11-05] MEDS: Pantoprazole 40 MG Vial IVPUSH SCH ×2 (10:43→22:41)
[2022-11-05] MEDS: Mirtazapine 30 MG Tab PO SCH (20:59)
[2022-11-05] MEDS: Cefuroxime 250 MG Tab PO SCH (21:00)
[2022-11-06] MEDS: Metoclopramide 10 MG/2 ML SDV IVPUSH SCH ×3 (00:19→13:36)
[2022-11-06] MEDS: Albuterol/Ipratropium 3.0-0.5 MG/3 ML Neb Soln NEB SCH ×3 (05:38→10:16)
[2022-11-06] MEDS: LORazepam 1 MG Tab PO SCH ×2 (07:00→10:12)
[2022-11-06] MEDS: Levothyroxine 50 MCG Tab PO SCH (07:01)
[2022-11-06] MEDS: Cefuroxime 250 MG Tab PO SCH (10:11)
[2022-11-06] MEDS: Propranolol 20 MG Tab PO SCH (10:13)
[2022-11-06] MEDS: Pantoprazole 40 MG Vial IVPUSH SCH (10:13)
[2022-11-06] MEDS: QUEtiapine 100 MG Tab PO SCH ×2 (10:14→13:35)
[2022-11-06] MEDS: OLANZapine 10 MG Tab PO SCH (10:15)
[2022-11-06] MEDS: Polyethylene Glycol 3350 Powder 17 GM Packet NGTUBE SCH (10:16)
[2022-11-06 13:30] VITALS: BP 128/78; PULSE 89
== END 2022-11-06 14:08 | DRG 388 ==
LOC: VM.ED 20:22 → VM.MS 21:29
PROVIDERS: ADMIT Family Medicine; ATTEND Internal Medicine
PROC: 0DH67UZ Insertion of Feeding Device into Stomach, Via Natural or Artificial Opening (ICD-10-PCS; principal; 2022-11-03)
DX: K56.7 Ileus, unspecified (principal); J69.0 Pneumonitis due to inhalation of food and vomit; E44.1 Mild protein-calorie malnutrition; Z91.199 Patient's noncompliance with other medical treatment and regimen due to unspecified reason; K92.0 Hematemesis; F20.5 Residual schizophrenia; F84.0 Autistic disorder; Z68.27 Body mass index [BMI] 27.0-27.9, adult; F25.9 Schizoaffective disorder, unspecified; E03.9 Hypothyroidism, unspecified; F71 Moderate intellectual disabilities; F29 Unspecified psychosis not due to a substance or known physiological condition; D64.9 Anemia, unspecified; R13.12 Dysphagia, oropharyngeal phase; Z66 Do not resuscitate; F60.2 Antisocial personality disorder; E78.5 Hyperlipidemia, unspecified; F41.1 Generalized anxiety disorder; K59.09 Other constipation; F42.9 Obsessive-compulsive disorder, unspecified; F31.9 Bipolar disorder, unspecified; G40.909 Epilepsy, unspecified, not intractable, without status epilepticus; Z88.0 Allergy status to penicillin; E78.00 Pure hypercholesterolemia, unspecified; Z86.16 Personal history of COVID-19; R41.0 Disorientation, unspecified; Z98.890 Other specified postprocedural states; F20.9 Schizophrenia, unspecified; F48.2 Pseudobulbar affect; Z79.899 Other long term (current) drug therapy
CPT/HCPCS: 36415; 43752; 71045; 74018; 74019; 80048; 80053; 83605; 83735; 84145; 85025; 86140; 92610-GN; 94640; 94760; 96361; 96374; 99284; 99285-25; A9270-GY; C9113; J0696; J1940; J2060; J2765; J7030; J7620-GY

== ENCOUNTER 2023-07-01 17:41 | Emergency (ER) | payer MEDICARE, MEDICAID ==
[2023-07-01 17:52] VITALS: BP 130/89; PULSE 91
== END 2023-07-01 19:35 ==
LOC: VM.ED 17:41
DX: Z04.89 Encounter for examination and observation for other specified reasons (principal); E03.9 Hypothyroidism, unspecified; Z86.16 Personal history of COVID-19; Z88.0 Allergy status to penicillin; Z79.899 Other long term (current) drug therapy; W01.0XXA Fall on same level from slipping, tripping and stumbling without subsequent striking against object, initial encounter
CPT/HCPCS: 71045; 72100; 72170; 99283; 99285

== ENCOUNTER 2023-11-21 01:25 | Emergency (ER) | payer MEDICARE, MEDICAID ==
[2023-11-21] MEDS ORDERED: Sodium Chloride 0.9% 10 ML Syringe FLUSH PRN (01:31)
[2023-11-21 01:39] VITALS: PULSE 109
[2023-11-21 01:44] LABS: BASOPHILS PERCENT AUTO 0.1 % (0.2-1.2); EOSINOPHILS ABSOLUTE AUTO 0.1 x10^3/uL (0.0-0.5); EOSINOPHILS PERCENT AUTO 0.5 % (0.0-4.0); HEMATOCRIT 42.6 % (40.0-52.0); HEMOGLOBIN 14.8 g/dL (14.0-18.0); IMMATURE GRAN ABSOLUTE AUTO 0.02 x10^3/uL (0.00-0.07); LYMPHOCYTES ABSOLUTE AUTO 1.1 x10^3/uL (1.0-4.8); LYMPHOCYTES PERCENT AUTO 7.7 % (25.0-50.0); MEAN CORPUSCULAR HEMOGLOBIN 33.4 pg (26.0-32.0); MEAN CORPUSCULAR HGB CONC 34.7 g/dL (32.0-36.0); MEAN CORPUSCULAR VOLUME 96.2 fL (78.0-93.0); MONOCYTES PERCENT AUTO 6.9 % (2.0-11.0); NEUTROPHILS ABSOLUTE AUTO 12.2 x10^3/uL (1.8-7.7); NEUTROPHILS PERCENT AUTO 84.7 % (50.0-80.0); PLATELET COUNT,PLT 203 x10^3/uL (130-400); RED BLOOD CELL COUNT 4.43 x10^6/uL (4.5-6.0); WHITE BLOOD CELL COUNT,WBC 14.5 x10^3/uL (4.0-10.0)
[2023-11-21] MEDS: Acetaminophen 500 MG Tab PO ONE (01:47)
[2023-11-21] MEDS: LORazepam 1 MG Tab PO ONE (01:48)
[2023-11-21] MEDS: Piperacillin/Tazobactam 4.5 GM in Sodium Chloride 0.9% 100 ML IV ONE (01:53)
[2023-11-21 02:03] LABS: PROTHROMBIN TIME 9.9 SEC (8.9-11.5)
[2023-11-21 02:11] LABS: LACTIC ACID 1.4 mmol/L (0.4-2.0)
[2023-11-21 02:14] LABS: A/G RATIO 0.92; ALANINE AMINOTRANSFERASE,ALT 29 U/L (16-63); ALBUMIN 3.4 g/dL (3.4-5.0); ALKALINE PHOSPHATASE 106 U/L (46-116); ASPARTATE AMNIOTRANSFERASE,AST 18 U/L (15-37); BILIRUBIN TOTAL 0.8 mg/dL (0.2-1.0); BLOOD UREA NITROGEN,BUN 13 mg/dL (7-18); C-REACTIVE PROTEIN 4.66 mg/dL (<=0.50); CALCIUM 9.1 mg/dL (8.5-10.1); CARBON DIOXIDE,CO2 29 mmol/L (21-32); CHLORIDE,CL 102 mmol/L (98-107); CREATININE 1.2 mg/dL (0.70-1.30); GLUCOSE RANDOM 144 mg/dL (70-99); MAGNESIUM 2.1 mg/dL (1.8-2.4); POTASSIUM,K 4.5 mmol/L (3.5-5.1); PROTEIN TOTAL,TP 7.1 g/dL (6.4-8.2); SODIUM,NA 138 mmol/L (136-145); TSH ULTRASENSITIVE 1.924 uIU/mL (0.358-3.74)
[2023-11-21 02:15] LABS: ANION GAP 11.5 mmol/L (5-15); ESTIMATED GFR 68 mL/min (>=60)
[2023-11-21] MEDS: LORazepam 2 MG/ML SDV IVPUSH ONE (02:26)
[2023-11-21 02:32] VITALS: BP 130/88
[2023-11-21 02:41] LABS: CORONAVIRUS COVID-19 NAA NEGATIVE (NEGATIVE); INFLUENZA A NAA NEGATIVE (NEGATIVE); INFLUENZA B NAA NEGATIVE (NEGATIVE); RESPIRATORY SYNCYTIAL VIR NAA NEGATIVE (NEGATIVE)
[2023-11-21] MEDS: Doxycycline Monohydrate 100 MG Cap PO ONE (03:05)
== END 2023-11-21 04:14 ==
LOC: VM.ED 01:25
DX: J69.0 Pneumonitis due to inhalation of food and vomit (principal); E03.9 Hypothyroidism, unspecified; Z86.16 Personal history of COVID-19; Z79.899 Other long term (current) drug therapy; Z88.0 Allergy status to penicillin
CPT/HCPCS: 0241U; 36415; 71045; 80053; 83605; 83735; 84443; 84484; 85025; 85610; 85730; 86140; 87040; 96365; 96375; 99285-25; A9270-GY; J2060; J2543; J3490

== ENCOUNTER 2023-11-21 10:28 | Inpatient (IN) | payer MEDICARE, MEDICAID ==
[2023-11-21] MEDS ORDERED: Albuterol/Ipratropium 3.0-0.5 MG/3 ML Neb Soln NEB PRN (11:55)
[2023-11-21] MEDS ORDERED: Sodium Chloride 0.9% 10 ML Syringe FLUSH PRN (11:55)
[2023-11-21] MEDS ORDERED: Ondansetron 4 MG/2 ML SDV IV PRN (11:55)
[2023-11-21 12:23] LABS: BASOPHILS PERCENT AUTO 0.1 % (0.2-1.2); EOSINOPHILS PERCENT AUTO 0.2 % (0.0-4.0); HEMATOCRIT 40.3 % (40.0-52.0); HEMOGLOBIN 13.4 g/dL (14.0-18.0); IMMATURE GRAN ABSOLUTE AUTO 0.05 x10^3/uL (0.00-0.07); LYMPHOCYTES ABSOLUTE AUTO 1.4 x10^3/uL (1.0-4.8); MEAN CORPUSCULAR HEMOGLOBIN 32.8 pg (26.0-32.0); MEAN CORPUSCULAR HGB CONC 33.3 g/dL (32.0-36.0); MEAN CORPUSCULAR VOLUME 98.5 fL (78.0-93.0); MONOCYTES ABSOLUTE AUTO 1.2 x10^3/uL (0.0-0.8); MONOCYTES PERCENT AUTO 6.7 % (2.0-11.0); NEUTROPHILS ABSOLUTE AUTO 14.5 x10^3/uL (1.8-7.7); NEUTROPHILS PERCENT AUTO 84.7 % (50.0-80.0); PLATELET COUNT,PLT 187 x10^3/uL (130-400); RED BLOOD CELL COUNT 4.09 x10^6/uL (4.5-6.0)
[2023-11-21 12:32] LABS: WHITE BLOOD CELL COUNT,WBC 17.1 x10^3/uL (4.0-10.0)
[2023-11-21] MEDS: Piperacillin/Tazobactam 4.5 GM in Sodium Chloride 0.9% 100 ML IV ONE (12:37)
[2023-11-21 12:42] LABS: A/G RATIO 0.83; ALANINE AMINOTRANSFERASE,ALT 33 U/L (16-63); ALKALINE PHOSPHATASE 93 U/L (46-116); ANION GAP 12.1 mmol/L (5-15); ASPARTATE AMNIOTRANSFERASE,AST 21 U/L (15-37); BILIRUBIN TOTAL 0.9 mg/dL (0.2-1.0); BLOOD UREA NITROGEN,BUN 17 mg/dL (7-18); C-REACTIVE PROTEIN 8.97 mg/dL (<=0.50); CALCIUM 8.7 mg/dL (8.5-10.1); CARBON DIOXIDE,CO2 27 mmol/L (21-32); CHLORIDE,CL 104 mmol/L (98-107); CREATININE 1.2 mg/dL (0.70-1.30); ESTIMATED GFR 68 mL/min (>=60); GLUCOSE RANDOM 139 mg/dL (70-99); POTASSIUM,K 4.1 mmol/L (3.5-5.1); PROTEIN TOTAL,TP 6.6 g/dL (6.4-8.2); SODIUM,NA 139 mmol/L (136-145)
[2023-11-21 12:45] LABS: LACTIC ACID 1.1 mmol/L (0.4-2.0)
[2023-11-21] MEDS: Sodium Chloride 0.9% 1,000 ML IV SCH (13:30)
[2023-11-21] MEDS ORDERED: Diazepam 5 MG Tab PO PRN (17:37)
[2023-11-21] MEDS ORDERED: Acetaminophen 325 MG Tab PO PRN (17:37)
[2023-11-21] MEDS: Piperacillin/Tazobactam 4.5 GM in Sodium Chloride 0.9% 100 ML IV SCH (19:31)
[2023-11-21] MEDS: LORazepam 1 MG Tab PO SCH (19:32)
[2023-11-21] MEDS: QUEtiapine 100 MG Tab PO SCH (20:40)
[2023-11-21] MEDS: OLANZapine 10 MG Tab PO SCH (20:41)
[2023-11-21] MEDS: Mirtazapine 30 MG Tab PO SCH (20:41)
[2023-11-21] MEDS: Propranolol 20 MG Tab PO SCH (20:41)
[2023-11-21] MEDS: Doxycycline Monohydrate 100 MG Cap PO SCH (20:41)
[2023-11-21] MEDS: Polyethylene Glycol 3350 Powder 17 GM Packet PO SCH (20:42)
[2023-11-21] MEDS: Lactulose Soln 10 GM/15 ML 30 ML UD Cup PO SCH (20:42)
[2023-11-21] MEDS: Metoclopramide 10 MG Tab PO SCH (20:42)
[2023-11-22] MEDS: LORazepam 1 MG Tab PO SCH (05:28)
[2023-11-22] MEDS: Levothyroxine 50 MCG Tab PO SCH (06:06)
[2023-11-22 09:11] LABS: BASOPHILS PERCENT AUTO 0.2 % (0.2-1.2); EOSINOPHILS ABSOLUTE AUTO 0.3 x10^3/uL (0.0-0.5); EOSINOPHILS PERCENT AUTO 1.7 % (0.0-4.0); HEMATOCRIT 36.6 % (40.0-52.0); HEMOGLOBIN 12.1 g/dL (14.0-18.0); IMMATURE GRAN ABSOLUTE AUTO 0.03 x10^3/uL (0.00-0.07); LYMPHOCYTES ABSOLUTE AUTO 1.4 x10^3/uL (1.0-4.8); LYMPHOCYTES PERCENT AUTO 9.7 % (25.0-50.0); MEAN CORPUSCULAR HGB CONC 33.1 g/dL (32.0-36.0); MEAN CORPUSCULAR VOLUME 99.7 fL (78.0-93.0); MONOCYTES ABSOLUTE AUTO 0.9 x10^3/uL (0.0-0.8); NEUTROPHILS ABSOLUTE AUTO 11.9 x10^3/uL (1.8-7.7); NEUTROPHILS PERCENT AUTO 82.2 % (50.0-80.0); PLATELET COUNT,PLT 155 x10^3/uL (130-400); RED BLOOD CELL COUNT 3.67 x10^6/uL (4.5-6.0); WHITE BLOOD CELL COUNT,WBC 14.5 x10^3/uL (4.0-10.0)
[2023-11-22] MEDS: Omeprazole 20 MG Cap.CR PO SCH (09:12)
[2023-11-22] MEDS: Enoxaparin 40 MG/0.4 ML Syringe SUBCUT SCH (09:12)
[2023-11-22 09:26] LABS: CALCIUM 8.3 mg/dL (8.5-10.1); CREATININE 1.1 mg/dL (0.70-1.30); EST CRCL DRUG DOSING (CG) 67.84 mL/min
[2023-11-22] MEDS: Magnesium Oxide 400 MG Tab PO SCH (11:05)
[2023-11-23] MEDS: Miconazole 2% Top Powder 45 GM Container TOP SCH (19:03)
[2023-11-24 07:00] LABS: BASOPHILS PERCENT AUTO 0.5 % (0.2-1.2); EOSINOPHILS ABSOLUTE AUTO 0.2 x10^3/uL (0.0-0.5); EOSINOPHILS PERCENT AUTO 3.7 % (0.0-4.0); HEMATOCRIT 32.7 % (40.0-52.0); HEMOGLOBIN 11.1 g/dL (14.0-18.0); IMMATURE GRAN ABSOLUTE AUTO 0.03 x10^3/uL (0.00-0.07); LYMPHOCYTES ABSOLUTE AUTO 1.7 x10^3/uL (1.0-4.8); LYMPHOCYTES PERCENT AUTO 28.4 % (25.0-50.0); MEAN CORPUSCULAR HEMOGLOBIN 33.7 pg (26.0-32.0); MEAN CORPUSCULAR HGB CONC 33.9 g/dL (32.0-36.0); MEAN CORPUSCULAR VOLUME 99.4 fL (78.0-93.0); MONOCYTES ABSOLUTE AUTO 0.4 x10^3/uL (0.0-0.8); MONOCYTES PERCENT AUTO 6.5 % (2.0-11.0); NEUTROPHILS ABSOLUTE AUTO 3.5 x10^3/uL (1.8-7.7); NEUTROPHILS PERCENT AUTO 60.4 % (50.0-80.0); PLATELET COUNT,PLT 172 x10^3/uL (130-400); RED BLOOD CELL COUNT 3.29 x10^6/uL (4.5-6.0); WHITE BLOOD CELL COUNT,WBC 5.9 x10^3/uL (4.0-10.0)
[2023-11-24 07:17] LABS: A/G RATIO 0.77; ALBUMIN 2.4 g/dL (3.4-5.0); BILIRUBIN TOTAL 0.4 mg/dL (0.2-1.0); CALCIUM 8.4 mg/dL (8.5-10.1); EST CRCL DRUG DOSING (CG) 74.63 mL/min; POTASSIUM,K 3.5 mmol/L (3.5-5.1); PROTEIN TOTAL,TP 5.5 g/dL (6.4-8.2)
[2023-11-24 07:18] LABS: ANION GAP 12.5 mmol/L (5-15)
[2023-11-24 08:41] VITALS: BP 105/66; PULSE 77
[2023-11-24] MEDS: [UNRECOGNIZED DRUG - OTHER] TOP SCH (09:30)
[2023-11-24] MEDS: MINERAL OIL TOP SCH (09:30)
[2023-11-24] MEDS: ISOPROPYL MYRISTATE TOP SCH (09:30)
[2023-11-24] MEDS: LEVOCARNITINE 500 MG PO SCH (09:30)
== END 2023-11-24 12:00 | disposition home or self-care (01) | DRG 871 ==
LOC: VM.MS 10:43
PROVIDERS: ADMIT Internal Medicine; ATTEND Internal Medicine
DX: A41.9 Sepsis, unspecified organism (principal); J18.9 Pneumonia, unspecified organism; J69.0 Pneumonitis due to inhalation of food and vomit; K56.7 Ileus, unspecified; Z66 Do not resuscitate; E78.5 Hyperlipidemia, unspecified; E03.9 Hypothyroidism, unspecified; I10 Essential (primary) hypertension; R25.1 Tremor, unspecified; F71 Moderate intellectual disabilities; F25.0 Schizoaffective disorder, bipolar type; Z88.0 Allergy status to penicillin; Z79.899 Other long term (current) drug therapy
CPT/HCPCS: 36415; 71045; 80048; 80053; 83605; 85025; 86140; 87070; 99232; 99233; A9270-GY; J1650; J2543; J3490; J7030